=== PATIENT | male | born 1975 | race Caucasian/White ===

== ENCOUNTER 2017-08-23 22:25 | Emergency (ER) | payer OTHER ==
[~2017-08-23] VITALS: Ht 175.3 cm; Wt 77.3 kg
[~2017-08-23 22:25] MED LIST: HYDR-3705 PO; SULF1TAB42 PO
[2017-08-23] MEDS ORDERED: CLINDAMYCIN HCL 150 MG CAPSULE PO ONE (22:45)
[2017-08-23 22:51] VITALS: BP 159/97
== END 2017-08-23 23:20 | disposition home or self-care (01) ==
LOC: EMS 22:27
DX: L03.116 Cellulitis of left lower limb (principal); F17.210 Nicotine dependence, cigarettes, uncomplicated
CPT/HCPCS: 99283

== ENCOUNTER 2017-08-25 10:54 | Emergency (ER) | payer OTHER ==
[~2017-08-25] VITALS: Ht 175.3 cm; Wt 71.8 kg
[2017-08-25] MEDS ORDERED: CLIN300C3 PO (11:03)
[2017-08-25] MEDS ORDERED: SODIUM CHLORIDE 0.9% 2,000 ML IV ONE (12:00)
[2017-08-25 12:43] LABS: BASOPHILS % (AUTO) 0.7 % (0.0-2.0); EOSINOPHILS % (AUTO) 1.2 % (1.0-6.0); HEMOGLOBIN 13.3 g/dL (13.5-17.5); LYMPHOCYTES # (AUTO) 1.2 K/uL (1.0-4.8); LYMPHOCYTES % (AUTO) 20.6 % (22.0-44.0); MEAN CORPUSCULAR HEMOGLOBIN 30.9 pg (26.0-34.0); MEAN CORPUSCULAR VOLUME 91 fL (80-100); MONOCYTES # (AUTO) 0.5 K/uL (0.1-1.0); MONOCYTES % (AUTO) 9.6 % (2.0-9.0); NEUTROPHILS # (AUTO) 3.8 K/uL (1.8-7.7); NEUTROPHILS % (AUTO) 67.9 % (40.0-70.0); PLATELET COUNT (AUTO) 204 K/uL (150-450); RED BLOOD CELL COUNT(AUTO) 4.29 MIL/uL (4.50-5.90); RED CELL DISTRIBUTION WIDTH 13.2 % (11.5-14.5); WHITE BLOOD COUNT (AUTO) 5.6 K/uL (4.5-11.0)
[2017-08-25 12:52] LABS: ANION GAP 7 mmol/L (8-16); CALCIUM, TOTAL 8.6 mg/dL (8.8-10.5); CARBON DIOXIDE 28 mmol/L (22-29); CHLORIDE 103 mmol/L (98-107); CREATININE 0.85 mg/dL (0.60-1.30); GLOMERULAR FILTR. RATE CALC > 60 mL/min (>60); SODIUM SERUM 138 mmol/L (136-145); UREA NITROGEN, BLOOD 13 mg/dL (7-18)
[2017-08-25 12:57] LABS: ALANINE AMINOTRANSFERASE 21 U/L (12-78); ALBUMIN 3.6 g/dL (3.4-5.0); ASPARTATE AMINOTRANSFERASE 17 U/L (15-37); BILIRUBIN,TOTAL 0.5 mg/dL (0.1-1.0); TOTAL PROTEIN, SERUM 7.3 g/dL (6.4-8.2)
[2017-08-25 12:58] LABS: LACTIC ACID 1.5 mmol/L (0.4-2.0)
[2017-08-25 13:56] LABS: APPEARANCE,URINE CLOUDY (CLEAR); GLUCOSE, URINE (UA) NEGATIVE (NEGATIVE); KETONES,URINE NEGATIVE (NEGATIVE); LEUKOCYTE ESTERASE ,URINE MODERATE (NEGATIVE); OCCULT BLOOD,URINE TRACE (NEGATIVE); PROTEIN,URINE NEGATIVE (NEGATIVE)
[2017-08-25 14:09] LABS: ADD UA MICROSCOPIC YES
[2017-08-25 14:11] LABS: RBC,URINE 0-2 /HPF (0-2); SQUAMOUS EPITHELIAL CELL,UR Few /LPF (None Seen); WBC,URINE 51-100 /HPF (0-5)
[2017-08-25] MEDS ORDERED: VANCOMYCIN HCL 1 GM/D5% WATER 200 ML IV ONE (14:15)
[2017-08-25 15:45] VITALS: BP 171/87
== END 2017-08-25 15:50 | disposition home or self-care (01) ==
LOC: EMS 10:55
DX: L03.116 Cellulitis of left lower limb (principal); F15.10 Other stimulant abuse, uncomplicated; F17.210 Nicotine dependence, cigarettes, uncomplicated
CPT/HCPCS: 36415; 80053; 80307; 81001; 83605; 85025; 87040; 87077; 87086; 87186; 96361; 96365; 99285; 99406; J3370; J7030

== ENCOUNTER 2021-11-07 09:04 | Inpatient (IN) | payer MEDICAID, OTHER ==
[~2021-11-07] VITALS: Ht 175.3 cm; Wt 71.7 kg
[~2021-11-07 09:04] MED LIST changes: +CLIN300C3 PO; -HYDR-3705 PO; -SULF1TAB42 PO
[2021-11-07 09:50] LABS: BASOPHILS % (AUTO) 0.5 % (0.0-2.0); EOSINOPHILS % (AUTO) 0.7 % (1.0-6.0); HEMATOCRIT 42.6 % (41-53); HEMOGLOBIN 14.7 g/dL (13.5-17.5); LYMPHOCYTES % (AUTO) 16.1 % (22.0-44.0); MEAN CORPUSCULAR HEMOGLOBIN 31.4 pg (26.0-34.0); MEAN CORPUSCULAR HGB CONC 34.6 G/dL (31.0-37.0); MEAN CORPUSCULAR VOLUME 91 fL (80-100); MONOCYTES # (AUTO) 0.4 K/uL (0.1-1.0); NEUTROPHILS # (AUTO) 4.8 K/uL (1.8-7.7); NEUTROPHILS % (AUTO) 75.7 % (40.0-70.0); PLATELET COUNT (AUTO) 209 K/uL (150-450); RED CELL DISTRIBUTION WIDTH 12.9 % (11.5-14.5)
[2021-11-07 10:37] LABS: AMPHET/METH SCREEN,URINE NEGATIVE (NEGATIVE); BARBITURATE SCREEN, URINE NEGATIVE (NEGATIVE); BENZODIAZEPINES SCREEN,URINE NEGATIVE (NEGATIVE); CANNABINOID SCREEN,URINE NEGATIVE (NEGATIVE); COCAINE SCREEN,URINE NEGATIVE (NEGATIVE); METHADONE SCREEN, URINE NEGATIVE (NEGATIVE); OPIATE SCREEN,URINE NEGATIVE (NEGATIVE)
[2021-11-07 10:37] LABS: ALANINE AMINOTRANSFERASE 23 U/L (12-78); ALBUMIN 3.7 g/dL (3.4-5.0); ALKALINE PHOSPHATASE 74 U/L (46-116); ANION GAP 3 mmol/L (8-16); ASPARTATE AMINOTRANSFERASE 19 U/L (15-37); BILIRUBIN,TOTAL 0.7 mg/dL (0.1-1.0); CALCIUM, TOTAL 8.7 mg/dL (8.8-10.5); CARBON DIOXIDE 33 mmol/L (22-29); CHLORIDE 104 mmol/L (98-107); CREATININE 1.02 mg/dL (0.60-1.30); GLOMERULAR FILTR. RATE CALC > 60 mL/min (>60); GLUCOSE,RANDOM 122 mg/dL (70-110); POTASSIUM 4.8 mmol/L (3.5-5.1); SODIUM SERUM 140 mmol/L (136-145); TOTAL PROTEIN, SERUM 7.4 g/dL (6.4-8.2); UREA NITROGEN, BLOOD 16 mg/dL (7-18)
[2021-11-07 10:38] LABS: PHENCYCLIDINE SCREEN,URINE NEGATIVE (NEGATIVE)
[2021-11-07 10:45] LABS: COVID AG,FIA SOURCE NASOPHARYNGEAL
[2021-11-07] MEDS ORDERED: ZOLPIDEM TARTRATE 10 MG TABLET PO PRN (11:15)
[2021-11-07] MEDS ORDERED: HALOPERIDOL 5 MG TABLET PO PRN (11:15)
[2021-11-07] MEDS ORDERED: LORazepam 2 MG TABLET PO PRN (11:15)
[2021-11-07] MEDS ORDERED: ACETAMINOPHEN 325 MG TABLET PO PRN (12:15)
[2021-11-07] MEDS ORDERED: PETROLATUM,WHITE 28 GM JELLY TP PRN (12:15)
[2021-11-07] MEDS ORDERED: BENZOCAINE/MENTHOL LOZENGE PO PRN (12:15)
[2021-11-07] MEDS ORDERED: MAG HYDROX/AL HYDROX/SIMETH ES 30 ML SUSPENSION UDCUP PO PRN (12:15)
[2021-11-07] MEDS ORDERED: BACITRACIN 28 GM OINTMENT TP PRN (12:15)
[2021-11-07] MEDS ORDERED: LOPERAMIDE HCL 2 MG CAPSULE PO PRN (12:15)
[2021-11-07] MEDS ORDERED: DOCUSATE SODIUM 100 MG CAPSULE PO PRN (12:15)
[2021-11-07] MEDS ORDERED: IBUPROFEN 600 MG TABLET PO PRN (12:15)
[2021-11-07] MEDS ORDERED: OMEPRAZOLE 20 MG CAPSULE PO PRN (12:15)
[2021-11-07] MEDS ORDERED: MAGNESIUM HYDROXIDE SUSPENSION 30 ML UDCUP PO PRN (12:15)
[2021-11-07] MEDS ORDERED: ALBUTEROL SULFATE HFA 90 MCG/PUFF 8 GM INHALER IH PRN (12:15)
[2021-11-07] MEDS ORDERED: CloNIDine HCL 0.1 MG TABLET PO PRN (12:15)
[2021-11-07] MEDS ORDERED: CloNIDine HCL 0.1 MG TABLET PO ONE (12:15)
[2021-11-07] MEDS ORDERED: AmLODIPine BESYLATE 5 MG TABLET PO ONE (12:15)
[2021-11-07] MEDS ORDERED: ONDANSETRON HCL 4 MG TABLET PO PRN (12:15)
[2021-11-07] MEDS ORDERED: LORazepam 1 MG TABLET PO ONE (12:15)
[2021-11-07 14:00] LABS: APPEARANCE,URINE CLEAR (CLEAR); BILIRUBIN,URINE NEGATIVE (NEGATIVE); GLUCOSE, URINE (UA) NEGATIVE (NEGATIVE); KETONES,URINE NEGATIVE (NEGATIVE); LEUKOCYTE ESTERASE ,URINE MODERATE (NEGATIVE); NITRATE,URINE POSITIVE (NEGATIVE); OCCULT BLOOD,URINE NEGATIVE (NEGATIVE); PROTEIN,URINE NEGATIVE (NEGATIVE); UROBILINOGEN,URINE 0.2 mg/dL (<=1.0)
[2021-11-07 14:05] LABS: BACTERIA,URINE Many /HPF (None Seen); RBC,URINE 0-2 /HPF (0-2); SQUAMOUS EPITHELIAL CELL,UR Few /LPF (None Seen); WBC,URINE 51-100 /HPF (0-5)
[2021-11-07 16:58] VITALS: BP 131/93
[2021-11-08 05:40] VITALS: BP 175/99
[2021-11-08] MEDS: CloNIDine HCL 0.1 MG TABLET PO PRN (05:41)
[2021-11-08] MEDS ORDERED: INFLUENZA VIRUS VACCINE QVS 2021-22 (6MO+)/PF 60 MCG/0.5 ML SYRINGE IM. ONE (05:45)
[2021-11-08] MEDS ORDERED: PNEUMOCOCCAL VACCINE POLYVALENT 0.5 ML VIAL [PPSV23] IM. ONE (05:45)
[2021-11-08 06:47] VITALS: BP 136/90
[2021-11-08 07:31] LABS: HEMOGLOBIN A1C 5.4 % (3.8-5.6)
[2021-11-08 07:47] LABS: CHOL/HDL RATIO 4.5 (4.2-7.3); FREE T4 (FREE THYROXINE) 0.84 ng/dL (0.76-1.46); THYROID STIMULATING HORMONE 1.7 uIU/mL (0.36-3.74)
[2021-11-08 08:46] VITALS: BP 125/74
[2021-11-08] MEDS: SERTRALINE HCL 50 MG TABLET PO SCH (11:06)
[2021-11-08 18:54] VITALS: BP 134/77
[2021-11-09] VITALS: BP 161/101
[2021-11-09] MEDS: CloNIDine HCL 0.1 MG TABLET PO PRN (00:04)
[2021-11-09 01:00] VITALS: BP 132/89
[2021-11-09 03:20] VITALS: BP 138/79
[2021-11-09 08:22] VITALS: BP 143/87
[2021-11-09] MEDS: SERTRALINE HCL 50 MG TABLET PO SCH (08:57)
[2021-11-09 16:16] VITALS: BP 151/95
[2021-11-09] MEDS: NITROFURANTOIN/NITROFURAN MAC 100 MG CAPSULE [MACROBID] PO SCH (21:25)
[2021-11-10 00:15] VITALS: BP 135/84
[2021-11-10 08:10] VITALS: BP 151/94
[2021-11-10] MEDS: NITROFURANTOIN/NITROFURAN MAC 100 MG CAPSULE [MACROBID] PO SCH (08:29)
[2021-11-10] MEDS: SERTRALINE HCL 50 MG TABLET PO SCH (08:29)
[2021-11-10] MEDS ORDERED: NICOTINE 21 MG/24 HOUR PATCH TD SCH (09:00)
[2021-11-10] MEDS ORDERED: SERT-158 PO (10:27)
[2021-11-10] MEDS ORDERED: NITR100C4 PO (10:29)
== END 2021-11-10 13:20 | disposition home or self-care (01) | DRG 750 ==
LOC: EMS 09:12 → B2S 11:06
PROVIDERS: ADMIT Psychiatry & Neurology Psychiatry; ATTEND Psychiatry & Neurology Psychiatry
DX: F25.9 Schizoaffective disorder, unspecified (principal); R45.851 Suicidal ideations; F32.9 Major depressive disorder, single episode, unspecified; F41.9 Anxiety disorder, unspecified; G47.00 Insomnia, unspecified; I10 Essential (primary) hypertension; Z20.822 Contact with and (suspected) exposure to COVID-19; F17.210 Nicotine dependence, cigarettes, uncomplicated; K59.00 Constipation, unspecified; Z90.79 Acquired absence of other genital organ(s); Z72.89 Other problems related to lifestyle; Z71.41 Alcohol abuse counseling and surveillance of alcoholic; Z71.6 Tobacco abuse counseling; Z28.21 Immunization not carried out because of patient refusal
CPT/HCPCS: 80053; 80061; 81001; 83036; 84436; 84439; 84443; 85025; 86592; 87086; 99285; G0480

== ENCOUNTER 2021-12-31 16:33 | Emergency (ER) | payer MEDICAID, OTHER ==
[~2021-12-31] VITALS: Ht 175.3 cm; Wt 72.7 kg
[~2021-12-31 16:33] MED LIST changes: -CLIN300C3 PO; +NITR100C4 PO; +SERT-158 PO
[2021-12-31 16:48] VITALS: BP 133/74
== END 2021-12-31 20:20 | disposition left against medical advice (07) ==
LOC: EMS 16:42
DX: R45.851 Suicidal ideations (principal); Z53.21 Procedure and treatment not carried out due to patient leaving prior to being seen by health care provider

== ENCOUNTER 2023-03-04 22:40 | Emergency (ER) | payer OTHER ==
[~2023-03-04] VITALS: Ht 175.3 cm; Wt 75.0 kg
[2023-03-04 23:00] VITALS: BP 189/112
== END 2023-03-05 04:38 | disposition left against medical advice (07) ==
LOC: EMS 22:45
DX: Z53.21 Procedure and treatment not carried out due to patient leaving prior to being seen by health care provider (principal)
CPT/HCPCS: 99281; Z7502

== ENCOUNTER 2023-04-28 13:15 | Inpatient (IN) | payer MEDICAID, OTHER ==
[~2023-04-28] VITALS: Ht 175.3 cm; Wt 74.8 kg
[2023-04-28] MEDS ORDERED: LORazepam 1 MG TABLET PO ONE (15:30)
[2023-04-28 15:43] LABS: COVID AG,FIA SOURCE NASOPHARYNGEAL
[2023-04-28 15:54] LABS: BASOPHILS % (AUTO) 0.4 % (0.0-2.0); EOSINOPHILS % (AUTO) 0.3 % (1.0-6.0); HEMATOCRIT 47.5 % (41-53); HEMOGLOBIN 15.6 g/dL (13.5-17.5); LYMPHOCYTES # (AUTO) 1.7 K/uL (1.0-4.8); LYMPHOCYTES % (AUTO) 22.2 % (22.0-44.0); MEAN CORPUSCULAR HGB CONC 32.9 G/dL (31.0-37.0); MEAN CORPUSCULAR VOLUME 91 fL (80-100); MONOCYTES # (AUTO) 0.5 K/uL (0.1-1.0); MONOCYTES % (AUTO) 7.2 % (2.0-9.0); NEUTROPHILS # (AUTO) 5.3 K/uL (1.8-7.7); NEUTROPHILS % (AUTO) 69.9 % (40.0-70.0); PLATELET COUNT (AUTO) 245 K/uL (150-450); RED BLOOD CELL COUNT(AUTO) 5.21 MIL/uL (4.50-5.90)
[2023-04-28 16:04] LABS: ANION GAP 7 mmol/L (8-16); CALCIUM, TOTAL 9.1 mg/dL (8.8-10.5); CARBON DIOXIDE 28 mmol/L (22-29); CHLORIDE 98 mmol/L (98-107); CREATININE 0.89 mg/dL (0.60-1.30); GLOMERULAR FILTR. RATE CALC > 60 mL/min (>60); GLUCOSE,RANDOM 114 mg/dL (70-110); POTASSIUM 3.6 mmol/L (3.5-5.1); SODIUM SERUM 133 mmol/L (136-145)
[2023-04-28 16:09] LABS: ALANINE AMINOTRANSFERASE 22 U/L (12-78); ALBUMIN 4.2 g/dL (3.4-5.0); ALKALINE PHOSPHATASE 74 U/L (46-116); ASPARTATE AMINOTRANSFERASE 21 U/L (15-37); BILIRUBIN,TOTAL 0.4 mg/dL (0.1-1.0); TOTAL PROTEIN, SERUM 8.3 g/dL (6.4-8.2)
[2023-04-28] MEDS ORDERED: ACETAMINOPHEN 325 MG TABLET PO PRN (17:00)
[2023-04-28] MEDS ORDERED: GuaiFENesin/D-METHORPHAN [SUGAR-FREE] 200-20MG/10 ML SYRUP UDCUP PO PRN (17:00)
[2023-04-28] MEDS ORDERED: MELATONIN 5 MG TABLET PO PRN (17:00)
[2023-04-28] MEDS ORDERED: LORazepam 2 MG TABLET PO PRN (17:00)
[2023-04-28] MEDS ORDERED: MAG HYDROX/AL HYDROX/SIMETH ES 30 ML SUSPENSION UDCUP PO PRN (17:00)
[2023-04-28] MEDS ORDERED: QUEtiapine FUMARATE 100 MG TABLET PO PRN (17:00)
[2023-04-28] MEDS ORDERED: PROMETHAZINE HCL 25 MG TABLET PO PRN (17:00)
[2023-04-28] MEDS ORDERED: HydrOXYzine PAMOATE 50 MG CAPSULE PO PRN (17:00)
[2023-04-28] MEDS ORDERED: TUBERCULIN, PURIFIED PROTEIN DERIVATIVE 5 TU/0.1 ML SYRINGE ID ONE (17:00)
[2023-04-28] MEDS ORDERED: MAGNESIUM HYDROXIDE SUSPENSION 30 ML UDCUP PO PRN (17:00)
[2023-04-28] MEDS ORDERED: LOPERAMIDE HCL 2 MG CAPSULE PO PRN (17:00)
[2023-04-28 17:15] LABS: AMPHET/METH SCREEN,URINE POSITIVE (NEGATIVE); BARBITURATE SCREEN, URINE NEGATIVE (NEGATIVE); BENZODIAZEPINES SCREEN,URINE NEGATIVE (NEGATIVE); CANNABINOID SCREEN,URINE NEGATIVE (NEGATIVE); COCAINE SCREEN,URINE NEGATIVE (NEGATIVE); METHADONE SCREEN, URINE NEGATIVE (NEGATIVE); OPIATE SCREEN,URINE NEGATIVE (NEGATIVE); PHENCYCLIDINE SCREEN,URINE NEGATIVE (NEGATIVE)
[2023-04-28 20:35] VITALS: BP 185/122
[2023-04-28] MEDS: THIAMINE 100 MG TABLET PO SCH (21:37)
[2023-04-28 22:00] VITALS: BP 163/99
[2023-04-28] MEDS ORDERED: CloNIDine HCL 0.1 MG TABLET PO PRN (23:45)
[2023-04-29 08:22] LABS: HEMOGLOBIN A1C 5.3 % (3.8-5.6)
[2023-04-29 08:33] VITALS: BP 139/81
[2023-04-29 08:40] LABS: CHOL/HDL RATIO 4.5 (4.2-7.3); FREE T4 (FREE THYROXINE) 1.1 ng/dL (0.76-1.46); THYROID STIMULATING HORMONE 2.56 uIU/mL (0.36-3.74)
[2023-04-29] MEDS ORDERED: DULoxetine HCL 20 MG CAPSULE PO SCH (09:00)
[2023-04-29] MEDS ORDERED: OMEGA-3/DHA/EPA/FISH OIL 1,000 MG CAPSULE PO SCH (09:00)
[2023-04-29] MEDS: NALTREXONE HCL 50 MG TABLET PO SCH (09:14)
[2023-04-29] MEDS: MULTIVITAMINS WITH MINERALS, THERAPEUTIC TABLET PO SCH (09:14)
[2023-04-29] MEDS: AmLODIPine BESYLATE 10 MG TABLET PO SCH (09:15)
[2023-04-29] MEDS: THIAMINE 100 MG TABLET PO SCH ×2 (09:15→16:32)
[2023-04-29] MEDS: FOLIC ACID 1 MG TABLET PO SCH (09:15)
[2023-04-29 12:00] VITALS: BP 132/80
[2023-04-29 16:04] VITALS: BP 122/80
[2023-04-29] MEDS: MIRTAZAPINE 15 MG TABLET PO SCH (20:29)
[2023-04-30 08:22] VITALS: BP 116/66
[2023-04-30] MEDS ORDERED: BuPROPion HCL XL 150 MG ER TABLET PO SCH (09:00)
[2023-04-30] MEDS: MULTIVITAMINS WITH MINERALS, THERAPEUTIC TABLET PO SCH (10:09)
[2023-04-30] MEDS: THIAMINE 100 MG TABLET PO SCH ×2 (10:09→18:18)
[2023-04-30] MEDS: AmLODIPine BESYLATE 10 MG TABLET PO SCH (10:09)
[2023-04-30] MEDS: FOLIC ACID 1 MG TABLET PO SCH (10:10)
[2023-04-30] MEDS: NALTREXONE HCL 50 MG TABLET PO SCH (10:32)
[2023-04-30] MEDS ORDERED: MIRT-89 PO (16:21)
[2023-04-30] MEDS ORDERED: BUPR-49 PO (16:21)
[2023-04-30] MEDS ORDERED: NALT50TA PO (16:21)
[2023-04-30] MEDS ORDERED: MELA5TAB40 PO (16:21)
[2023-04-30] MEDS: MIRTAZAPINE 15 MG TABLET PO SCH (20:18)
[2023-04-30 23:02] VITALS: BP 135/95
[2023-05-01] MEDS ORDERED: BuPROPion HCL XL 150 MG ER TABLET PO SCH (09:00)
[2023-05-01 09:07] VITALS: BP 140/90
[2023-05-01] MEDS: NALTREXONE HCL 50 MG TABLET PO SCH (09:12)
[2023-05-01] MEDS: MULTIVITAMINS WITH MINERALS, THERAPEUTIC TABLET PO SCH (09:12)
[2023-05-01] MEDS: AmLODIPine BESYLATE 10 MG TABLET PO SCH (09:13)
[2023-05-01] MEDS: FOLIC ACID 1 MG TABLET PO SCH (09:13)
[2023-05-01] MEDS: THIAMINE 100 MG TABLET PO SCH (09:13)
[2023-05-02] MEDS ORDERED: AMLO10TA55 PO (23:20)
== END 2023-05-01 13:00 | disposition home or self-care (01) | DRG 751 ==
LOC: EMS 13:17 → B2S 18:53
PROVIDERS: ADMIT Psychiatry & Neurology Psychiatry; ATTEND Psychiatry & Neurology Psychiatry
DX: F33.9 Major depressive disorder, recurrent, unspecified (principal); E87.1 Hypo-osmolality and hyponatremia; R45.851 Suicidal ideations; F15.90 Other stimulant use, unspecified, uncomplicated; F17.200 Nicotine dependence, unspecified, uncomplicated; F41.9 Anxiety disorder, unspecified; Z20.822 Contact with and (suspected) exposure to COVID-19; I10 Essential (primary) hypertension; F19.10 Other psychoactive substance abuse, uncomplicated; Z55.9 Problems related to education and literacy, unspecified; Z59.9 Problem related to housing and economic circumstances, unspecified; Z63.9 Problem related to primary support group, unspecified; Z65.3 Problems related to other legal circumstances; Z85.47 Personal history of malignant neoplasm of testis; Z90.79 Acquired absence of other genital organ(s); Z91.199 Patient's noncompliance with other medical treatment and regimen due to unspecified reason; Z91.013 Allergy to seafood
CPT/HCPCS: 71045; 80053; 80061; 80307; 83036; 84439; 84443; 85025; 86592; 93005; 99285; G0480; 36415-L1; 36415-TC

== ENCOUNTER 2023-06-01 20:34 | Inpatient (IN) | payer MEDICAID, OTHER ==
[~2023-06-01] VITALS: Ht 175.3 cm; Wt 68.2 kg
[~2023-06-01 20:34] MED LIST changes: +AMLO10TA55 PO; +BUPR-49 PO; +MELA5TAB40 PO; +MIRT-89 PO; +NALT50TA PO; -NITR100C4 PO; -SERT-158 PO
[2023-06-01] MEDS ORDERED: HEPARIN SODIUM,PORCINE 5,000 UNITS/ML VIAL IVP ONE ×2 (20:45→21:00)
[2023-06-01] MEDS ORDERED: HEPARIN SODIUM,PORCINE 5,000 UNITS/ML VIAL IVP PRN ×2 (20:45)
[2023-06-01] MEDS ORDERED: ATORVASTATIN CALCIUM 40 MG TABLET PO ONE (20:45)
[2023-06-01] MEDS ORDERED: HEPARIN SODIUM 25000 UNITS/D5W 250 ML IV PRN (20:45)
[2023-06-01] MEDS ORDERED: MORPHINE SULFATE 4 MG/ML SYRINGE IVP ONE (20:45)
[2023-06-01] MEDS ORDERED: SODIUM BICARBONATE 50 MEQ/50 ML VIAL ONE (21:02)
[2023-06-01] MEDS ORDERED: LIDOCAINE/PF 1% 30 ML VIAL ONE (21:02)
[2023-06-01] MEDS ORDERED: HEPARIN SODIUM 1000 UNITS/NS 1,000 ML ONE (21:03)
[2023-06-01] MEDS ORDERED: IOHEXOL 300 MG/ML 100 ML VIAL ONE (21:03)
[2023-06-01 21:14] LABS: BASOPHILS % (AUTO) 0.7 % (0.0-2.0); EOSINOPHILS % (AUTO) 1.4 % (1.0-6.0); HEMOGLOBIN 14.6 g/dL (13.5-17.5); LYMPHOCYTES % (AUTO) 33.3 % (22.0-44.0); MEAN CORPUSCULAR HEMOGLOBIN 30.4 pg (26.0-34.0); MEAN CORPUSCULAR HGB CONC 33.2 G/dL (31.0-37.0); MEAN CORPUSCULAR VOLUME 92 fL (80-100); MONOCYTES # (AUTO) 0.6 K/uL (0.1-1.0); MONOCYTES % (AUTO) 6.6 % (2.0-9.0); NEUTROPHILS # (AUTO) 5.2 K/uL (1.8-7.7); PLATELET COUNT (AUTO) 250 K/uL (150-450); RED CELL DISTRIBUTION WIDTH 13.6 % (11.5-14.5)
[2023-06-01] MEDS ORDERED: MAGNESIUM HYDROXIDE SUSPENSION 30 ML UDCUP PO PRN (21:15)
[2023-06-01] MEDS ORDERED: ACETAMINOPHEN 325 MG TABLET PO PRN ×2 (21:15)
[2023-06-01] MEDS ORDERED: ATORVASTATIN CALCIUM 40 MG TABLET PO SCH (21:15)
[2023-06-01] MEDS ORDERED: ONDANSETRON HCL 4 MG/2 ML VIAL IVP PRN ×2 (21:15)
[2023-06-01] MEDS ORDERED: ZOLPIDEM TARTRATE 5 MG TABLET PO PRN (21:15)
[2023-06-01] MEDS ORDERED: BISACODYL 10 MG RECTAL RECTAL SUPPOSITORY PR PRN (21:15)
[2023-06-01] MEDS ORDERED: MORPHINE SULFATE 2 MG/ML SYRINGE IVP PRN (21:15)
[2023-06-01] MEDS ORDERED: HYDROCODONE/ACETAMINOPHEN 5-325 MG TABLET PO PRN (21:15)
[2023-06-01 21:20] LABS: ANION GAP 12 mmol/L (8-16); CALCIUM, TOTAL 8.6 mg/dL (8.8-10.5); CARBON DIOXIDE 27 mmol/L (22-29); CHLORIDE 101 mmol/L (98-107); CREATININE 1.05 mg/dL (0.60-1.30); GLOMERULAR FILTR. RATE CALC > 60 mL/min (>60); GLUCOSE,RANDOM 141 mg/dL (70-110); POTASSIUM 3.8 mmol/L (3.5-5.1); SODIUM SERUM 140 mmol/L (136-145)
[2023-06-01 21:26] LABS: ALANINE AMINOTRANSFERASE 15 U/L (12-78); ALBUMIN 3.5 g/dL (3.4-5.0); ALKALINE PHOSPHATASE 71 U/L (46-116); ASPARTATE AMINOTRANSFERASE 16 U/L (15-37); BILIRUBIN,TOTAL 0.3 mg/dL (0.1-1.0); CREATINE KINASE, TOTAL ONLY 50 U/L (39-308); PROTHROMBIN TIME 10.1 SEC (9.4-11.6); TOTAL PROTEIN, SERUM 7.2 g/dL (6.4-8.2)
[2023-06-01] MEDS ORDERED: DiphenhydrAMINE HCL 50 MG/ML VIAL ONE (21:30)
[2023-06-01] MEDS ORDERED: MethylPREDNISolone SOD SUCC 125 MG/2 ML VIAL ONE (21:31)
[2023-06-01 21:36] LABS: B-TYPE NATRIURETIC PEPTIDE 78 pg/mL (0-100)
[2023-06-01] MEDS ORDERED: EPTIFIBATIDE 2 MG/ML 10 ML VIAL IVP ONE ×2 (21:42→22:00)
[2023-06-01] MEDS ORDERED: HEPARIN SODIUM 1000 UNITS/NS 1,000 ML IARTER ONE (22:00)
[2023-06-01] MEDS ORDERED: MethylPREDNISolone SOD SUCC 125 MG/2 ML VIAL IVP ONE (22:00)
[2023-06-01] MEDS ORDERED: DiphenhydrAMINE HCL 50 MG/ML VIAL IVP ONE (22:00)
[2023-06-01] MEDS ORDERED: LIDOCAINE 1% 30 ML/SOD BICARB 8.4% 4 ML SQ ONE (22:00)
[2023-06-01] MEDS ORDERED: IOHEXOL 300 MG/ML 100 ML VIAL ICOR ONE (22:00)
[2023-06-01] MEDS ORDERED: TICAGRELOR 90 MG TABLET ONE (22:04)
[2023-06-01] MEDS ORDERED: TICAGRELOR 90 MG TABLET PO ONE (22:15)
[2023-06-01] MEDS ORDERED: NITROGLYCERIN 50 MG/D5% WATER 250 ML ONE (22:16)
[2023-06-01] MEDS ORDERED: IOHEXOL 300 MG/ML 50 ML VIAL ONE (22:22)
[2023-06-01] MEDS ORDERED: NITROGLYCERIN/D5W 50 MG/250 ML IV BOTTLE ICOR ONE (22:30)
[2023-06-01] MEDS ORDERED: FentaNYL CITRATE PF 100 MCG/2 ML VIAL ONE (22:31)
[2023-06-01] MEDS ORDERED: HEPARIN SODIUM,PORCINE 1,000 UNITS/ML 10 ML VIAL IVP ONE (23:00)
[2023-06-01 23:20] VITALS: BP 159/104; PULSE 83; RESP 20; TEMP 98.2
[2023-06-01 23:27] VITALS: PULSE 80
[2023-06-01 23:35] VITALS: BP 164/105; PULSE 82
[2023-06-01 23:50] VITALS: BP 148/103; PULSE 90
[2023-06-02] VITALS (15 sets, daily range): BP systolic 125–159; BP diastolic 68–105; PULSE 65–90; RESP 14–18; TEMP 97.4–98.4
[2023-06-02 05:52] LABS: EOSINOPHILS % (AUTO) 0 % (1.0-6.0); HEMATOCRIT 44.2 % (41-53); LYMPHOCYTES # (AUTO) 0.4 K/uL (1.0-4.8); LYMPHOCYTES % (AUTO) 4.1 % (22.0-44.0); MEAN CORPUSCULAR HEMOGLOBIN 30.8 pg (26.0-34.0); MEAN CORPUSCULAR HGB CONC 33.9 G/dL (31.0-37.0); MEAN CORPUSCULAR VOLUME 91 fL (80-100); MONOCYTES # (AUTO) 0.1 K/uL (0.1-1.0); MONOCYTES % (AUTO) 0.7 % (2.0-9.0); NEUTROPHILS # (AUTO) 8.9 K/uL (1.8-7.7); PLATELET COUNT (AUTO) 215 K/uL (150-450); RED BLOOD CELL COUNT(AUTO) 4.87 MIL/uL (4.50-5.90); RED CELL DISTRIBUTION WIDTH 13.7 % (11.5-14.5)
[2023-06-02 06:02] LABS: ANION GAP 10 mmol/L (8-16); CALCIUM, TOTAL 8.9 mg/dL (8.8-10.5); CARBON DIOXIDE 29 mmol/L (22-29); CHLORIDE 99 mmol/L (98-107); CREATININE 0.89 mg/dL (0.60-1.30); GLOMERULAR FILTR. RATE CALC > 60 mL/min (>60); GLUCOSE,RANDOM 141 mg/dL (70-110); POTASSIUM 4.9 mmol/L (3.5-5.1); SODIUM SERUM 138 mmol/L (136-145)
[2023-06-02 06:05] LABS: NEUTROPHILS % (AUTO) 95.2 % (40.0-70.0)
[2023-06-02] MEDS: ETHYL ALCOHOL 62% ANTISEPTIC NASAL SANITIZER 0.6 ML AMPUL NASAL SCH ×2 (08:01→20:30)
[2023-06-02] MEDS: DOCUSATE SODIUM 100 MG CAPSULE PO SCH ×2 (08:02→20:30)
[2023-06-02] MEDS: ASPIRIN 81 MG CHEWABLE TABLET PO SCH (08:02)
[2023-06-02] MEDS: PANTOPRAZOLE SODIUM 40 MG DR TABLET PO SCH (08:02)
[2023-06-02] MEDS: AmLODIPine BESYLATE 10 MG TABLET PO SCH (08:02)
[2023-06-02] MEDS: TICAGRELOR 90 MG TABLET PO SCH ×2 (08:02→20:30)
[2023-06-02] MEDS: METOPROLOL SUCCINATE 25 MG ER TABLET PO SCH (08:03)
[2023-06-02] MEDS ORDERED: ASPIRIN 81 MG CHEWABLE TABLET PO SCH (09:00)
[2023-06-02] MEDS ORDERED: ATORVASTATIN CALCIUM 40 MG TABLET PO SCH (21:00)
[2023-06-03] VITALS: BP 127/93; PULSE 70; RESP 18; TEMP 98.3
[2023-06-03 04:00] VITALS: BP 104/73; PULSE 70; RESP 16; TEMP 98.2
[2023-06-03 05:54] LABS: BASOPHILS % (AUTO) 0.1 % (0.0-2.0); EOSINOPHILS % (AUTO) 0.4 % (1.0-6.0); HEMATOCRIT 41.9 % (41-53); HEMOGLOBIN 13.9 g/dL (13.5-17.5); LYMPHOCYTES # (AUTO) 2.6 K/uL (1.0-4.8); LYMPHOCYTES % (AUTO) 18.3 % (22.0-44.0); MEAN CORPUSCULAR HEMOGLOBIN 30.5 pg (26.0-34.0); MEAN CORPUSCULAR HGB CONC 33.2 G/dL (31.0-37.0); MEAN CORPUSCULAR VOLUME 92 fL (80-100); MONOCYTES # (AUTO) 1.1 K/uL (0.1-1.0); MONOCYTES % (AUTO) 7.7 % (2.0-9.0); NEUTROPHILS # (AUTO) 10.4 K/uL (1.8-7.7); NEUTROPHILS % (AUTO) 73.5 % (40.0-70.0); PLATELET COUNT (AUTO) 209 K/uL (150-450); RED BLOOD CELL COUNT(AUTO) 4.57 MIL/uL (4.50-5.90); RED CELL DISTRIBUTION WIDTH 13.7 % (11.5-14.5)
[2023-06-03 06:10] LABS: ANION GAP 9 mmol/L (8-16); CALCIUM, TOTAL 8.5 mg/dL (8.8-10.5); CARBON DIOXIDE 27 mmol/L (22-29); CHLORIDE 100 mmol/L (98-107); CREATININE 0.88 mg/dL (0.60-1.30); GLOMERULAR FILTR. RATE CALC > 60 mL/min (>60); GLUCOSE,RANDOM 98 mg/dL (70-110); SODIUM SERUM 136 mmol/L (136-145)
[2023-06-03 08:00] VITALS: BP 123/82; PULSE 64; RESP 16; TEMP 97.8
[2023-06-03] MEDS: DOCUSATE SODIUM 100 MG CAPSULE PO SCH (08:51)
[2023-06-03] MEDS: AmLODIPine BESYLATE 10 MG TABLET PO SCH (08:51)
[2023-06-03] MEDS: TICAGRELOR 90 MG TABLET PO SCH (08:51)
[2023-06-03] MEDS: PANTOPRAZOLE SODIUM 40 MG DR TABLET PO SCH (08:51)
[2023-06-03] MEDS: METOPROLOL SUCCINATE 25 MG ER TABLET PO SCH (08:51)
[2023-06-03] MEDS: ASPIRIN 81 MG CHEWABLE TABLET PO SCH (08:52)
[2023-06-03] MEDS: ETHYL ALCOHOL 62% ANTISEPTIC NASAL SANITIZER 0.6 ML AMPUL NASAL SCH (08:52)
[2023-06-03 12:00] VITALS: BP 117/79; PULSE 64; RESP 18; TEMP 97.8
[2023-06-03] MEDS ORDERED: ASPI81 PO (12:19)
[2023-06-03] MEDS ORDERED: PANT-31 PO (12:19)
[2023-06-03] MEDS ORDERED: METO25XL PO (12:19)
[2023-06-03] MEDS ORDERED: AMLO-258 PO (12:19)
[2023-06-03] MEDS ORDERED: ATOR40TA71 PO (12:19)
[2023-06-03] MEDS ORDERED: TICA90TA PO (12:19)
[2023-06-03 16:18] LABS: CHOL/HDL RATIO 3.7 (4.2-7.3); CHOLESTEROL 154 mg/dL (131-200); HDL CHOLESTEROL 42 mg/dL (40-60); LDL CHOL (CALC.) 85 mg/dL (0-130); TRIGLYCERIDES 135 mg/dL (15-150)
== END 2023-06-03 17:05 | disposition home or self-care (01) | DRG 174 ==
LOC: EMS 20:35 → ICU 21:52
PROVIDERS: ADMIT Internal Medicine; ATTEND Internal Medicine
PROC: 027035Z Dilation of Coronary Artery, One Artery with Two Drug-eluting Intraluminal Devices, Percutaneous Approach (ICD-10-PCS; principal; 2023-06-01)
PROC: 4A023N7 Measurement of Cardiac Sampling and Pressure, Left Heart, Percutaneous Approach (ICD-10-PCS; 2023-06-01)
PROC: B2111ZZ Fluoroscopy of Multiple Coronary Arteries using Low Osmolar Contrast (ICD-10-PCS; 2023-06-01)
PROC: B2151ZZ Fluoroscopy of Left Heart using Low Osmolar Contrast (ICD-10-PCS; 2023-06-01)
DX: I21.19 ST elevation (STEMI) myocardial infarction involving other coronary artery of inferior wall (principal); F17.210 Nicotine dependence, cigarettes, uncomplicated; F32.A Depression, unspecified; I10 Essential (primary) hypertension; Z71.6 Tobacco abuse counseling; Z90.79 Acquired absence of other genital organ(s); Z79.899 Other long term (current) drug therapy; Z91.013 Allergy to seafood; Z79.82 Long term (current) use of aspirin
CPT/HCPCS: 71045; 80048; 80053; 80061; 82550; 83880; 84484; 85025; 85610; 85730; 87081; 92920; 92928; 93005; 93306; 99291; G0378; J1200; J1327; J1644; J2270; J2930; J3010; J3490; Q9967; 36415-L1; 36415-TC

== ENCOUNTER 2024-05-24 23:26 | Inpatient (IN) | payer MEDICAID, OTHER ==
[~2024-05-24] VITALS: Ht 175.3 cm; Wt 73.0 kg
[~2024-05-24 23:26] MED LIST changes: -AMLO10TA55 PO; -BUPR-49 PO; +CIPR500T10 PO; +IBUP-1492 PO; -MELA5TAB40 PO; -MIRT-89 PO; -NALT50TA PO; +PERCT PO
[2024-05-25] VITALS (8 sets, daily range): BP systolic 138–155; BP diastolic 75–106; PULSE 71–87; RESP 18–20; TEMP 97–98.4; O2SAT 97–100
[2024-05-25 00:27] LABS: BASOPHILS % (AUTO) 0.5 % (0.0-2.0); EOSINOPHILS % (AUTO) 1.4 % (1.0-6.0); HEMATOCRIT 42.2 % (41-53); HEMOGLOBIN 14.1 g/dL (13.5-17.5); LYMPHOCYTES # (AUTO) 2.1 K/uL (1.0-4.8); LYMPHOCYTES % (AUTO) 28.7 % (22.0-44.0); MEAN CORPUSCULAR HEMOGLOBIN 30.3 pg (26.0-34.0); MEAN CORPUSCULAR HGB CONC 33.4 G/dL (31.0-37.0); MEAN CORPUSCULAR VOLUME 91 fL (80-100); MONOCYTES # (AUTO) 0.6 K/uL (0.1-1.0); MONOCYTES % (AUTO) 7.7 % (2.0-9.0); NEUTROPHILS # (AUTO) 4.6 K/uL (1.8-7.7); NEUTROPHILS % (AUTO) 61.7 % (40.0-70.0); PLATELET COUNT (AUTO) 245 K/uL (150-450); RED BLOOD CELL COUNT(AUTO) 4.67 MIL/uL (4.50-5.90); RED CELL DISTRIBUTION WIDTH 14.1 % (11.5-14.5); WHITE BLOOD COUNT (AUTO) 7.4 K/uL (4.5-11.0)
[2024-05-25 00:40] LABS: ALCOHOL, BLOOD (SERUM) 218 mg/dL (0-10); ANION GAP 8 mmol/L (8-16); CALCIUM, TOTAL 8.7 mg/dL (8.8-10.5); CARBON DIOXIDE 31 mmol/L (22-29); CHLORIDE 106 mmol/L (98-107); CREATININE 0.83 mg/dL (0.60-1.30); GLOMERULAR FILTR. RATE CALC > 60 mL/min (>60); GLUCOSE,RANDOM 127 mg/dL (70-110); POTASSIUM 3.7 mmol/L (3.5-5.1); SODIUM SERUM 145 mmol/L (136-145); UREA NITROGEN, BLOOD 12 mg/dL (7-18)
[2024-05-25 03:00] LABS: COVID AG,FIA SOURCE NASAL SWAB
[2024-05-25 03:27] LABS: SARS-COV2 (COVID) ANTIGEN,FIA Negative (Negative)
[2024-05-25] MEDS ORDERED: LORazepam 2 MG TABLET PO PRN (07:45)
[2024-05-25] MEDS ORDERED: ZOLPIDEM TARTRATE 10 MG TABLET PO PRN (07:45)
[2024-05-25] MEDS ORDERED: QUEtiapine FUMARATE 100 MG TABLET PO PRN (07:45)
[2024-05-25 11:13] LABS: ALCOHOL, URINE DRUG SCREEN NEGATIVE (NEGATIVE); AMPHET/METH SCREEN,URINE POSITIVE (NEGATIVE); BARBITURATE SCREEN, URINE NEGATIVE (NEGATIVE); BENZODIAZEPINES SCREEN,URINE NEGATIVE (NEGATIVE); CANNABINOID SCREEN,URINE NEGATIVE (NEGATIVE); COCAINE SCREEN,URINE NEGATIVE (NEGATIVE); METHADONE SCREEN, URINE NEGATIVE (NEGATIVE); OPIATE SCREEN,URINE NEGATIVE (NEGATIVE); PHENCYCLIDINE SCREEN,URINE NEGATIVE (NEGATIVE)
[2024-05-25 11:14] LABS: APPEARANCE,URINE HAZY (CLEAR); BILIRUBIN,URINE NEGATIVE (NEGATIVE); COLOR,URINE LIGHT YELLOW (YELLOW); GLUCOSE, URINE (UA) NEGATIVE (NEGATIVE); KETONES,URINE NEGATIVE (NEGATIVE); LEUKOCYTE ESTERASE ,URINE LARGE (NEGATIVE); NITRATE,URINE POSITIVE (NEGATIVE); OCCULT BLOOD,URINE NEGATIVE (NEGATIVE); PROTEIN,URINE NEGATIVE (NEGATIVE); SPECIFIC GRAVITIY, URINE 1.013 (1.003-1.030); UROBILINOGEN,URINE <=1.0 mg/dL (<=1.0)
[2024-05-25 11:59] LABS: BACTERIA,URINE Many /HPF (None Seen); RBC,URINE 0-2 /HPF (0-2); WBC,URINE 26-50 /HPF (0-5)
[2024-05-25] MEDS ORDERED: PROMETHAZINE HCL 25 MG TABLET PO PRN (12:00)
[2024-05-25] MEDS ORDERED: HydrOXYzine PAMOATE 50 MG CAPSULE PO PRN (12:00)
[2024-05-25] MEDS ORDERED: MAG HYDROX/ALUMINUM HYD/SIMETH ES 30 ML SUSPENSION UDCUP PO PRN (12:00)
[2024-05-25] MEDS ORDERED: ACETAMINOPHEN 325 MG TABLET PO PRN (12:00)
[2024-05-25] MEDS ORDERED: GuaiFENesin/D-METHORPHAN [SUGAR-FREE] 200-20MG/10 ML SYRUP UDCUP PO PRN (12:00)
[2024-05-25] MEDS ORDERED: MAGNESIUM HYDROXIDE SUSPENSION 30 ML UDCUP PO PRN (12:00)
[2024-05-25] MEDS ORDERED: LOPERAMIDE HCL 2 MG CAPSULE PO PRN (12:00)
[2024-05-25] MEDS ORDERED: TUBERCULIN, PURIFIED PROTEIN DERIVATIVE 5 TU/0.1 ML SYRINGE ID ONE (12:00)
[2024-05-25] MEDS ORDERED: DIAZEPAM 10 MG TABLET PO PRN (12:00)
[2024-05-25 12:17] LABS: ALCOHOL, URINE DRUG SCREEN NEGATIVE (NEGATIVE); AMPHET/METH SCREEN,URINE POSITIVE (NEGATIVE); BARBITURATE SCREEN, URINE NEGATIVE (NEGATIVE); BENZODIAZEPINES SCREEN,URINE NEGATIVE (NEGATIVE); CANNABINOID SCREEN,URINE NEGATIVE (NEGATIVE); COCAINE SCREEN,URINE NEGATIVE (NEGATIVE); METHADONE SCREEN, URINE NEGATIVE (NEGATIVE); OPIATE SCREEN,URINE NEGATIVE (NEGATIVE); PHENCYCLIDINE SCREEN,URINE NEGATIVE (NEGATIVE)
[2024-05-25] MEDS: CYANOCOBALAMIN 1,000 MCG/ML VIAL IM ONE (12:46)
[2024-05-25] MEDS: THIAMINE 100 MG TABLET PO SCH (16:25)
[2024-05-25] MEDS ORDERED: CloNIDine HCL 0.1 MG TABLET PO PRN (20:45)
[2024-05-25] MEDS: MELATONIN 5 MG TABLET PO SCH (21:05)
[2024-05-25] MEDS: MIRTAZAPINE 15 MG TABLET PO SCH (21:05)
[2024-05-25] MEDS: AmLODIPine BESYLATE 2.5 MG TABLET PO SCH (21:24)
[2024-05-25] MEDS: CIPROFLOXACIN HCL 500 MG TABLET PO SCH (21:24)
[2024-05-26] VITALS (7 sets, daily range): BP systolic 142–151; BP diastolic 74–107; PULSE 63–92; RESP 18; TEMP 97.9–98.8; O2SAT 98–99
[2024-05-26] MEDS ORDERED: DIAZEPAM 10 MG TABLET PO PRN (07:00)
[2024-05-26 07:35] LABS: HEMOGLOBIN A1C 5.6 % (3.8-5.6)
[2024-05-26 07:42] LABS: CHOL/HDL RATIO 4.1 (4.2-7.3); FREE T4 (FREE THYROXINE) 0.73 ng/dL (0.76-1.46); THYROID STIMULATING HORMONE 0.88 uIU/mL (0.36-3.74)
[2024-05-26] MEDS: DIAZEPAM 10 MG TABLET PO SCH (09:02)
[2024-05-26] MEDS: NALTREXONE HCL 50 MG TABLET PO SCH (09:02)
[2024-05-26] MEDS: OMEGA-3/DHA/EPA/FISH OIL 1,000 MG CAPSULE PO SCH (09:02)
[2024-05-26] MEDS: MULTIVITAMINS WITH MINERALS, THERAPEUTIC TABLET PO SCH (09:02)
[2024-05-26] MEDS: LOSARTAN POTASSIUM 25 MG TABLET PO SCH (09:02)
[2024-05-26] MEDS: FOLIC ACID 1 MG TABLET PO SCH (09:03)
[2024-05-26] MEDS: SERTRALINE HCL 50 MG TABLET PO SCH (09:03)
[2024-05-26] MEDS ORDERED: MIRT-89 PO (16:57)
[2024-05-26] MEDS ORDERED: NALT50TA33 PO (16:57)
[2024-05-26] MEDS ORDERED: OMEG-135 PO (16:57)
[2024-05-26] MEDS ORDERED: SERT-439 PO (16:57)
[2024-05-26] MEDS ORDERED: MELA5TAB40 PO (16:57)
[2024-05-27 11:50] VITALS: BP 151/99; PULSE 71; RESP 18; TEMP 97.9; O2SAT 97
[2024-05-27 14:19] VITALS: BP 151/99; PULSE 71; RESP 18; TEMP 97.7; O2SAT 98
[2024-05-28] MEDS ORDERED: DIAZEPAM 5 MG TABLET PO PRN (07:00)
[2024-05-28] MEDS ORDERED: DIAZEPAM 5 MG TABLET PO SCH (09:00)
[2024-05-28] MEDS ORDERED: LOPERAMIDE HCL 2 MG CAPSULE PO PRN (12:00)
[2024-05-29] MEDS ORDERED: DIAZEPAM 5 MG TABLET PO PRN (07:00)
== END 2024-05-27 14:35 | disposition home or self-care (01) | DRG 751 ==
LOC: EMS 23:27 → 3EI 05-25 08:37
PROVIDERS: ADMIT Psychiatry & Neurology Psychiatry; ATTEND Psychiatry & Neurology Psychiatry
PROC: GZHZZZZ Group Psychotherapy (ICD-10-PCS; principal; 2024-05-25)
PROC: GZ51ZZZ Individual Psychotherapy, Behavioral (ICD-10-PCS; 2024-05-25)
PROC: GZ58ZZZ Individual Psychotherapy, Cognitive-Behavioral (ICD-10-PCS; 2024-05-25)
PROC: GZ56ZZZ Individual Psychotherapy, Supportive (ICD-10-PCS; 2024-05-26)
DX: F33.2 Major depressive disorder, recurrent severe without psychotic features (principal); R45.851 Suicidal ideations; Z91.199 Patient's noncompliance with other medical treatment and regimen due to unspecified reason; F17.210 Nicotine dependence, cigarettes, uncomplicated; F15.90 Other stimulant use, unspecified, uncomplicated; F41.9 Anxiety disorder, unspecified; J44.9 Chronic obstructive pulmonary disease, unspecified; Z20.822 Contact with and (suspected) exposure to COVID-19; I10 Essential (primary) hypertension; N39.0 Urinary tract infection, site not specified; R73.9 Hyperglycemia, unspecified; N42.83 Cyst of prostate; I25.2 Old myocardial infarction; Z59.00 Homelessness unspecified; Z85.47 Personal history of malignant neoplasm of testis; Z90.79 Acquired absence of other genital organ(s)
CPT/HCPCS: 80048; 80061; 80307; 81001; 83036; 84439; 84443; 85025; 86592; 87086; 87186; 96372; 99285; G0480; J3420; Q9967

== ENCOUNTER 2025-04-25 14:57 | Emergency (ER) | payer OTHER ==
[~2025-04-25] VITALS: Ht 175.3 cm; Wt 74.5 kg
[~2025-04-25 14:57] MED LIST changes: -CIPR500T10 PO; -IBUP-1492 PO; +MELA5TAB40 PO; +MIRT-89 PO; +NALT50TA33 PO; +OMEG-135 PO; -PERCT PO; +SERT-439 PO
[2025-04-25 15:14] VITALS: BP 186/106; PULSE 100; RESP 20; TEMP 98.1; O2SAT 99
[2025-04-25] MEDS: LORazepam 2 MG TABLET PO ONE (15:35)
== END 2025-04-25 15:57 | disposition home or self-care (01) ==
LOC: EMS 14:57
DX: F41.0 Panic disorder [episodic paroxysmal anxiety] (principal); F32.9 Major depressive disorder, single episode, unspecified; I25.2 Old myocardial infarction; Z91.013 Allergy to seafood; Z95.5 Presence of coronary angioplasty implant and graft; Z79.899 Other long term (current) drug therapy
CPT/HCPCS: 99283

== ENCOUNTER 2025-04-30 21:25 | Emergency (ER) | payer OTHER ==
[~2025-04-30] VITALS: Ht 160 cm; Wt 65.0 kg
[2025-04-30 21:29] VITALS: TEMP 98
[2025-04-30 22:29] LABS: BASOPHILS % (AUTO) 0.6 % (0.0-2.0); EOSINOPHILS % (AUTO) 1.5 % (1.0-6.0); HEMATOCRIT 39.5 % (41-53); HEMOGLOBIN 13.3 g/dL (13.5-17.5); LYMPHOCYTES # (AUTO) 1.9 K/uL (1.0-4.8); LYMPHOCYTES % (AUTO) 31.4 % (22.0-44.0); MEAN CORPUSCULAR HEMOGLOBIN 30.6 pg (26.0-34.0); MEAN CORPUSCULAR HGB CONC 33.7 G/dL (31.0-37.0); MEAN CORPUSCULAR VOLUME 91 fL (80-100); MONOCYTES # (AUTO) 0.5 K/uL (0.1-1.0); MONOCYTES % (AUTO) 8.7 % (2.0-9.0); NEUTROPHILS # (AUTO) 3.5 K/uL (1.8-7.7); NEUTROPHILS % (AUTO) 57.8 % (40.0-70.0); PLATELET COUNT (AUTO) 201 K/uL (150-450); RED BLOOD CELL COUNT(AUTO) 4.34 MIL/uL (4.50-5.90); RED CELL DISTRIBUTION WIDTH 13.7 % (11.5-14.5); WHITE BLOOD COUNT (AUTO) 6.1 K/uL (4.5-11.0)
[2025-04-30 22:39] LABS: ANION GAP 3 mmol/L (8-16); CALCIUM, TOTAL 8.4 mg/dL (8.8-10.5); CARBON DIOXIDE 32 mmol/L (22-29); CHLORIDE 104 mmol/L (98-107); CREATININE 0.89 mg/dL (0.60-1.30); GLOMERULAR FILTR. RATE CALC > 60 mL/min (>60); GLUCOSE,RANDOM 98 mg/dL (70-110); POTASSIUM 3.7 mmol/L (3.5-5.1); SODIUM SERUM 138 mmol/L (136-145); UREA NITROGEN, BLOOD 17 mg/dL (7-18)
[2025-04-30 22:47] LABS: TROPONIN I-HIGH SENSITIVITY 5 ng/L (<76)
[2025-04-30 23:07] VITALS: BP 172/101; PULSE 77; RESP 18; O2SAT 99
[2025-04-30] MEDS: CloNIDine HCL 0.1 MG TABLET PO ONE (23:22)
[2025-05-01] MEDS ORDERED: LISI-894 PO (05:27)
[2025-05-01] MEDS ORDERED: TRAZ-252 PO (05:28)
== END 2025-05-01 04:53 ==
LOC: EMS 21:27
DX: I10 Essential (primary) hypertension (principal); I25.2 Old myocardial infarction; F17.210 Nicotine dependence, cigarettes, uncomplicated; F15.90 Other stimulant use, unspecified, uncomplicated; Z95.5 Presence of coronary angioplasty implant and graft; Z00.8 Encounter for other general examination; Z79.899 Other long term (current) drug therapy
CPT/HCPCS: 99284; 80048; 84484; 85025; 36415; 93005; G0480

== ENCOUNTER 2025-06-14 19:57 | Emergency (ER) | payer OTHER ==
[~2025-06-14] VITALS: Ht 175.3 cm; Wt 72.6 kg
[~2025-06-14 19:57] MED LIST changes: +LISI-894 PO; -MELA5TAB40 PO; -MIRT-89 PO; -NALT50TA33 PO; -OMEG-135 PO; +TRAZ-252 PO
[2025-06-14 20:00] VITALS: BP 147/99; PULSE 78; RESP 17; TEMP 97.9; O2SAT 98
[2025-06-14 21:06] LABS: PLATELET COUNT (AUTO) 210 K/uL (150-450); RED BLOOD CELL COUNT(AUTO) 4.46 MIL/uL (4.50-5.90); RED CELL DISTRIBUTION WIDTH 14.1 % (11.5-14.5); WHITE BLOOD COUNT (AUTO) 6.3 K/uL (4.5-11.0)
[2025-06-14 21:14] LABS: CALCIUM, TOTAL 8.1 mg/dL (8.8-10.5); CREATININE 0.88 mg/dL (0.60-1.30); GLOMERULAR FILTR. RATE CALC > 60 mL/min (>60); GLUCOSE,RANDOM 96 mg/dL (70-110); SODIUM SERUM 144 mmol/L (136-145); UREA NITROGEN, BLOOD 10 mg/dL (7-18)
[2025-06-14 21:52] LABS: COVID AG,FIA SOURCE NASAL SWAB
[2025-06-14 22:10] LABS: SARS-COV2 (COVID) ANTIGEN,FIA Negative (Negative)
[2025-06-14] MEDS: SERTRALINE HCL 50 MG TABLET PO ONE (22:47)
[2025-06-14] MEDS: MIRTAZAPINE 15 MG TABLET PO ONE (22:47)
== END 2025-06-15 01:04 | disposition home or self-care (01) ==
LOC: EMS 19:57
DX: F32.9 Major depressive disorder, single episode, unspecified (principal); F10.129 Alcohol abuse with intoxication, unspecified; I10 Essential (primary) hypertension; F17.210 Nicotine dependence, cigarettes, uncomplicated; Z79.899 Other long term (current) drug therapy; Z20.822 Contact with and (suspected) exposure to COVID-19; Y90.6 Blood alcohol level of 120-199 mg/100 ml
CPT/HCPCS: 99284; 87426; 80048; 85025; G0480

== ENCOUNTER 2025-11-18 10:30 | Emergency (ER) | payer OTHER ==
[~2025-11-18] VITALS: Ht 175.3 cm; Wt 68.2 kg
[2025-11-18 10:35] VITALS: BP 144/94; PULSE 111; RESP 18; TEMP 97.6; O2SAT 100
[2025-11-18] MEDS ORDERED: SODIUM CHLORIDE 0.9% 100 ML ONE (12:48)
[2025-11-18] MEDS ORDERED: IOHEXOL 350 MG/ML 100 ML VIAL ONE (12:48)
[2025-11-18 12:56] LABS: PLATELET COUNT (AUTO) 235 K/uL (150-450); RED BLOOD CELL COUNT(AUTO) 4.62 MIL/uL (4.50-5.90); RED CELL DISTRIBUTION WIDTH 12.7 % (11.5-14.5); WHITE BLOOD COUNT (AUTO) 16.1 K/uL (4.5-11.0)
[2025-11-18 13:05] LABS: CALCIUM, TOTAL 9.0 mg/dL (8.8-10.5); CREATININE 0.81 mg/dL (0.60-1.30); GLOMERULAR FILTR. RATE CALC > 60 mL/min (>60); GLUCOSE,RANDOM 95 mg/dL (70-110); SODIUM SERUM 135 mmol/L (136-145); UREA NITROGEN, BLOOD 8 mg/dL (7-18)
[2025-11-18 13:10] LABS: ASPARTATE AMINOTRANSFERASE 17 U/L (15-37); TOTAL PROTEIN, SERUM 7.8 g/dL (6.4-8.2)
[2025-11-18] MEDS: SODIUM CHLORIDE 0.9% 2,050 ML IV ONE (17:05)
[2025-11-18] MEDS: PIPERACILLIN/TAZO 3.375 GM/D5W 50 ML IV ONE (17:09)
[2025-11-18 17:26] LABS: LACTIC ACID 0.9 mmol/L (0.4-2.0)
[2025-11-18] MEDS: VANCOMYCIN 1GM/WATER(PEG/NADA) 200 ML IV ONE (17:28)
[2025-11-18] MEDS ORDERED: AMOX-457 PO (18:35)
[2025-11-18] MEDS ORDERED: CEPH-558 PO (18:35)
== END 2025-11-18 19:38 | disposition left against medical advice (07) ==
LOC: EMS 10:30
DX: L03.211 Cellulitis of face (principal); L02.01 Cutaneous abscess of face; I10 Essential (primary) hypertension; F32.A Depression, unspecified; F17.210 Nicotine dependence, cigarettes, uncomplicated; Z98.890 Other specified postprocedural states; Z91.013 Allergy to seafood
CPT/HCPCS: 99285; 96365; 70491; 96366; 80053; 83605; 85025; 85610; 85730; 87040; 87077; 87205; 36415; 96368; 84145; Q9967; J2543; J7030; J7050; J3490; 87186